=== PATIENT | male | born 1960 | race Caucasian/White ===

== ENCOUNTER 2017-04-12 14:08 | Emergency (ER) | payer OTHER ==
[~2017-04-12] VITALS: Ht 167.6 cm; Wt 86.0 kg
[2017-04-12 14:16] VITALS: Ht 167.6 cm; Wt 86.0 kg
[2017-04-12] MEDS ORDERED: KETOROLAC 30 MG INJ IV STA (14:52)
[2017-04-12] MEDS ORDERED: SOD CHLORIDE 0.9% 1,000 ML IV STA (14:52)
[2017-04-12 15:24] LABS: BASOPHILS % 0.2 % (0.0-2.0); EOSINOPHILS # 0.1 10^3/ul (0.0-0.5); EOSINOPHILS % 2.6 % (0.0-7.0); HEMATOCRIT 40.5 % (42.0-52.0); HEMOGLOBIN 13.9 g/dl (14.0-18.0); LYMPHOCYTES # 1.6 10^3/ul (0.8-2.9); LYMPHOCYTES % 29.1 % (15.0-51.0); MEAN CORPUSCULAR HEMOGLOBIN 30.8 pg (29.0-33.0); MEAN CORPUSCULAR HGB CONC 34.3 g/dl (32.0-37.0); MEAN CORPUSCULAR VOLUME 89.6 fl (82.0-101.0); MEAN PLATELET VOLUME 10.5 fl (7.4-10.4); MONOCYTE # 0.5 10^3/ul (0.3-0.9); MONOCYTES % 9.3 % (0.0-11.0); NEUTROPHIL # 3.1 10^3/ul (1.6-7.5); NEUTROPHILS % 58.6 % (39.0-77.0); PLATELET COUNT 200 10^3/UL (140-415); RED BLOOD COUNT 4.52 10^6/ul (4.70-6.10); RED CELL DISTRIBUTION WIDTH 12.1 % (11.5-14.5); WHITE BLOOD COUNT 5.4 10^3/ul (4.8-10.8)
[2017-04-12 15:31] LABS: ADD UMIC NO; UR ASCORBIC ACID NEGATIVE (NEGATIVE); UR BILIRUBIN (Dip) NEGATIVE (NEGATIVE); UR BLOOD (Dip) NEGATIVE (NEGATIVE); UR CLARITY CLEAR (CLEAR); UR COLOR YELLOW (YELLOW); UR GLUCOSE (Dip) NEGATIVE (NEGATIVE); UR KETONES (Dip) NEGATIVE (NEGATIVE); UR LEUKOCYTE ESTERASE (Dip) NEGATIVE Leu/ul (NEGATIVE); UR NITRITE (Dip) NEGATIVE (NEGATIVE); UR SPECIFIC GRAVITY (Dip) 1.018 (1.003-1.030); UR TOTAL PROTEIN (Dip) NEGATIVE (NEGATIVE); UR UROBILINOGEN (Dip) NEGATIVE (NEGATIVE)
[2017-04-12 15:41] LABS: ALANINE AMINOTRANSFERASE 37 IU/L (13-69); ALBUMIN 4.1 g/dl (3.3-4.9); ALBUMIN/GLOBULIN RATIO 1.28; ALKALINE PHOSPHATASE 55 IU/L (42-121); ANION GAP 12 (8-16); ASPARTATE AMINO TRANSFERASE 24 IU/L (15-46); BILIRUBIN,INDIRECT 0.3 mg/dl (0-1.1); BILIRUBIN,TOTAL 0.3 mg/dl (0.2-1.3); BLOOD UREA NITROGEN 13 mg/dl (7-20); CARBON DIOXIDE 28 mmol/L (21-31); CHLORIDE 105 mmol/L (97-110); CREATININE 0.97 mg/dl (0.61-1.24); GLUCOSE 93 mg/dl (70-220); SODIUM 141 mmol/L (135-144); TOTAL PROTEIN 7.3 g/dl (6.1-8.1)
[2017-04-12 15:53] LABS: TROPONIN-I < 0.012 ng/ml (0.00-0.12)
--- NOTE | 2017-04-12 15:59 | RADRPT ---
PROCEDURE: XR Chest. CLINICAL INDICATION: Abdominal pain TECHNIQUE: Single frontal view of the chest was obtained COMPARISON: None FINDINGS: No pleural effusion or pneumothorax. No consolidation. Top normal cardiomediastinal silhouette. No acute osseous abnormality. IMPRESSION: No acute cardiopulmonary disease. RPTAT: EE Lady Yuen Physician Date Time Electronically viewed and signed by Lady Yuen Physician on 04/12/2017 15:59 /
--- NOTE | 2017-04-12 16:15 | RADRPT ---
PROCEDURE: CT Abdomen and Pelvis without contrast. CLINICAL INDICATION: Abdominal and pelvic pain. TECHNIQUE: CT scan of the abdomen and pelvis without contrast was performed. Coronal and sagittal reformatted images were obtained from the axial source images. Images were reviewed on a [employer] PACS workstation. Total exam DLP is 888.84 mGy-cm. CTDIvol is 14.42 mGy. One or more of the f ollowing dose reduction techniques were used: Automated exposure control, adjustment of the mA and/o r kV according to patient size, use of iterative reconstruction technique. COMPARISON: None. FINDINGS: There is mild atelectasis at the lung bases posteriorly. The lung bases are otherwise normal. The he art size is normal. There is no pericardial effusion or pleural effusion. The liver is normal in size and attenuation. There is no focal hepatic lesion. The gallbladder and bile ducts are normal. The spleen is normal in size. There is a 2 cm low attenuation nodule posteriorly in the spleen, like ly a benign cyst or pseudocyst. There is no other focal splenic lesion. Both adrenals are normal with no enlargement or mass. The pancreas is unremarkable with no mass or evidence of pancreatitis. There is no renal mass or hydronephrosis. There is no renal calculus or ureteral calculus. The abdominal aorta is not dilated. There is calcification in the aorta consistent with atherosclero sis. There is no retroperitoneal lymphadenopathy or mass. There is no pelvic lymphadenopathy or mass. The bladder and distal ureters are normal. The periappendiceal region is unremarkable with no evidence of appendicitis. There is diverticulosis of the colon without evidence of diverticulitis. The bowel and mesentery are otherwise normal. There is no free fluid or free gas. There are degenerative changes of the spine. There is no fracture or lytic lesion. IMPRESSION: 1. Mild atelectasis at the lung bases posteriorly. 2. Probably benign 2 cm nodule posteriorly in the spleen. Follow-up and 6 months advised. 3. Atherosclerosis. 4. Diverticulosis of the colon without evidence of diverticulitis. 5. Degenerative changes of the spine. 6. Otherwise unremarkable study. RPTAT: QQ .Jason Mckeon MD, MD Date Time Electronically viewed and signed by .Jason Mckeon MD, MD on 04/12/2017 16:15 .R/
--- NOTE | 2017-04-12 16:45 | ERD ---
ER Documentation Chief Complaint Date/Time DATE: 04/12/17 TIME: 16:41 Chief Complaint Pt with L flank pain X 2 days, denies fever. HPI This is a 56-year-old male who presents to the emergency room for evaluation of left-sided flank pain. The patient states he has had flank pain for 2 days and denies any painful urination or fevers associated with this. The patient came to the emergency room for evaluation and states that he does have some mild radiation to the groin ROS All systems reviewed and are negative except as per history of present illness. Medications Home Meds No Active Prescriptions or Reported Meds Allergies Allergies: Coded Allergies: No Known Allergy (Unverified , 04/12/17) PMhx/Soc Medical and Surgical Hx: pt denies Medical Hx, pt denies Surgical Hx Hx Alcohol Use: No Hx Substance Use: No Hx Tobacco Use: No Smoking Status: Never smoker Physical Exam Vitals Vital Signs Date Time Temp Pulse Resp B/P Pulse Ox O2 Delivery O2 Flow Rate FiO2 04/12/17 16:13 73 18 109/75 97 Room Air 04/12/17 14:16 98.5 92 18 108/73 94 Physical Exam INITIAL VITAL SIGNS: Reviewed by me GENERAL: The patient is well developed and appropriate for usual state of health in no apparent distress HEENT: Pupils equal, round, and reactive to light. EOMI. There is no scleral icterus. NECK: C-spine is soft and supple, there is no meningismus. There is no cervical lymphadenopathy. LUNGS: Clear to auscultation bilaterally. There are no rales, wheezes or rhonchi. HEART: Regular rate and rhythm, no murmurs, clicks, rubs or gallops. ABDOMEN: Left sided CVAT, otherwise soft, non-tender, non-distended. There are bowel sounds in all four quadrants. No rebound or guarding. EXTREMITIES: There is no peripheral cyanosis or edema. No focal swelling or erythema. NEUROLOGICAL: The patient moves all four extremities with 5/5 strength. Cranial nerves II - XII are intact. Normal gait. Alert and oriented SKIN: There is no apparent rash or petechiae. HEME/LYMPHATIC: There is no evidence of excessive bruising or lymphedema. PSYCHIATRIC: The patient does not appear anxious or depressed. Result Diagram: 04/12/17 1500 04/12/17 1500 Results 24 hrs Laboratory Tests Test 04/12/17 15:00 White Blood Count 5.410^3/ul Red Blood Count 4.5210^6/ul Hemoglobin 13.9g/dl Hematocrit 40.5% Mean Corpuscular Volume 89.6fl Mean Corpuscular Hemoglobin 30.8pg Mean Corpuscular Hemoglobin Concent 34.3g/dl Red Cell Distribution Width 12.1% Platelet Count 37367^3/UL Mean Platelet Volume 10.5fl Neutrophils % 58.6% Lymphocytes % 29.1% Monocytes % 9.3% Eosinophils % 2.6% Basophils % 0.2% Nucleated Red Blood Cells % 0.0/100WBC Neutrophils # 3.110^3/ul Lymphocytes # 1.610^3/ul Monocytes # 0.510^3/ul Eosinophils # 0.110^3/ul Basophils # 0.010^3/ul Nucleated Red Blood Cells # 0.010^3/ul Urine Color YELLOW Urine Clarity CLEAR Urine pH 6.0 Urine Specific [place] 1.018 Urine Ketones NEGATIVEmg/dL Urine Nitrite NEGATIVEmg/dL Urine Bilirubin NEGATIVEmg/dL Urine Urobilinogen NEGATIVEmg/dL Urine Leukocyte Esterase NEGATIVELeu/ul Urine Hemoglobin NEGATIVEmg/dL Urine Glucose NEGATIVEmg/dL Urine Total Protein NEGATIVEmg/dl Sodium Level 141mmol/L Potassium Level 4.0mmol/L Chloride Level 105mmol/L Carbon Dioxide Level 28mmol/L Anion Gap 12 Blood Urea Nitrogen 13mg/dl Creatinine 0.97mg/dl Glucose Level 93mg/dl Calcium Level 9.0mg/dl Total Bilirubin 0.3mg/dl Direct Bilirubin 0.00mg/dl Indirect Bilirubin 0.3mg/dl Aspartate Amino Transf (AST/SGOT) 24IU/L Alanine Aminotransferase (ALT/SGPT) 37IU/L Alkaline Phosphatase 55IU/L Troponin I < 0.012ng/ml Total Protein 7.3g/dl Albumin 4.1g/dl Globulin 3.20g/dl Albumin/Globulin Ratio 1.28 Lipase 170U/L Current Medications Medications (Trade) Dose Ordered Sig/Wicho Route PRN Reason Start Time Stop Time Status Last Admin Dose Admin Sodium Chloride (NS) 1,000 ml @ 1,000 mls/hr Q1H STAT IV 04/12/17 14:52 04/12/17 15:51 DC 9/30/17 15:07 Ketorolac Tromethamine (Toradol) 30 mg ONCE STAT IV 04/12/17 14:52 04/12/17 14:54 DC 04/12/17 15:07 Procedures/MDM CT abdomen pelvis without: 1. Mild atelectasis at the lung bases posteriorly. 2. Probably benign 2 cm nodule posteriorly in the spleen. Follow-up and 6 months advised. 3. Atherosclerosis. 4. Diverticulosis of the colon without evidence of diverticulitis. 5. Degenerative changes of the spine. 6. Otherwise unremarkable study. Chest X-ray 1V Interpreted by me: Soft Tissue: No acute abnormalities Bones: No acute abnormalities Mediastinum/Cardiac Silhouette/Lungs: [No acute abnormalities] This 56-year-old male presents to the ER for evaluation of left-sided flank pain for the past 2 days. When I evaluated this patient he had mild CVAT on the left. This patient underwent laboratory testing and urinalysis which is all within normal limits. CT the abdomen and pelvis was obtained which does show a benign 2 cm nodule in the posterior aspect of the spleen. I have discussed this with the patient. The patient will be placed on Naprosyn for left flank pain and he has no fever, no signs of UTI no signs of any obstructive uropathy. The patient is comfortable after receiving Toradol in the emergency room and will be discharged with instructions to return to the emergency room at any point for reevaluation Departure Diagnosis: Primary Impression: Left flank pain Condition: Stable GRANT HANNON DO Apr 12, 2017 16:45
[2017-04-12] MEDS ORDERED: NAPR-260 PO (16:47)
[2017-04-12 16:54] VITALS: BP 117/72; PULSE 78; RESP 18; TEMP 97.8
== END 2017-04-12 16:59 | disposition home or self-care (01) ==
LOC: E/R 14:08
DX: R10.9 Unspecified abdominal pain (principal); R00.2 Palpitations
CPT/HCPCS: 36415; 71010; 74176; 80053; 81003; 83690; 84484; 85025; 93005; 96374; J1885; J7030; Z7502

== ENCOUNTER 2017-06-12 09:30 | Emergency (ER) | payer OTHER ==
[~2017-06-12] VITALS: Wt 84.1 kg
[~2017-06-12 09:30] MED LIST: NAPR-260 PO
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
[2017-06-12] MEDS ORDERED: KETOROLAC 60 MG INJ IM STA (10:13)
[2017-06-12 10:32] LABS: URINE BLOOD (Dip) POC Negative (NEGATIVE)
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
[2017-06-12 11:54] LABS: BARBITURATES Negative (NEGATIVE); BENZODIAZEPINES Negative (NEGATIVE); CANNABINOIDS Negative (NEGATIVE); COCAINE Negative (NEGATIVE); OPIATES Negative (NEGATIVE)
[2017-06-12] MEDS ORDERED: HYDROCODONE/APAP (5/325) TAB PO ONE (12:00)
[2017-06-12] MEDS ORDERED: BACL10TA PO (12:10)
[2017-06-12] MEDS ORDERED: HYDR-906 PO (12:10)
[2017-06-12] MEDS ORDERED: IBUP-1542 PO (12:10)
[2017-06-12 12:28] VITALS: BP 137/80; PULSE 96; RESP 16; TEMP 98.5
== END 2017-06-12 12:29 | disposition home or self-care (01) ==
LOC: FTE 09:30
DX: S13.9XXA Sprain of joints and ligaments of unspecified parts of neck, initial encounter (principal); V49.40XA Driver injured in collision with unspecified motor vehicles in traffic accident, initial encounter
CPT/HCPCS: 72125; 72128; 80307; 81003; 96372; J1885; Z7502; Z7610

== ENCOUNTER 2017-07-27 07:16 | Emergency (ER) | END 2017-07-27 12:11 | disposition home or self-care (01) ==